=== PATIENT | female | born 2000 | race Caucasian/White ===

== ENCOUNTER 2023-08-31 16:53 | Emergency (ER) | payer OTHER ==
[~2023-08-31] VITALS: Ht 172.7 cm; Wt 56.7 kg
[2023-08-31 17:11] VITALS: BP_SYST 115; PULSE 58; RESP 18; TEMP 98.3; O2SAT 98
[2023-08-31] MEDS: ACETAMINOPHEN 500 MG TABLET PO ONE ×2 (19:44→19:45)
[2023-08-31] MEDS: ONDANSETRON 4 MG ODT TAB PO ONE (19:45)
[2023-08-31] MEDS: IBUPROFEN 600 MG TABLET PO ONE (21:09)
[2023-08-31] MEDS ORDERED: IBUP-1969 PO (21:12)
[2023-08-31] MEDS ORDERED: ONDA-8 TL (21:12)
[2023-08-31 21:19] VITALS: BP_SYST 115; PULSE 58; RESP 18; TEMP 98.3; O2SAT 98
== END 2023-08-31 21:19 | disposition home or self-care (01) ==
LOC: SED 16:53
DX: S09.90XA Unspecified injury of head, initial encounter (principal); F07.81 Postconcussional syndrome; R11.0 Nausea; R42 Dizziness and giddiness; W50.0XXA Accidental hit or strike by another person, initial encounter; Y93.61 Activity, american tackle football; Y92.89 Other specified places as the place of occurrence of the external cause; Y99.8 Other external cause status
CPT/HCPCS: 99284; 70450; 72125; Q0162